=== PATIENT | female | born 1990 ===

== ENCOUNTER 2017-12-11 19:35 | Emergency (ER) | payer OTHER ==
[2017-12-11 20:30] VITALS: BP 114/77
--- NOTE | 2017-12-11 20:40 | UC ---
Dental HPI - HPI Summary HPI Summary: 27 y/o female presents to the urgent care c/o toothache in her Rt lower jaw since yesterday. Pt reports she has a cavity there and now when she eats it hurts a lot. Pain is 8/10 radiating up w/ mild swelling. Pt took ibuprofen 400mg PO this morning to alleviate symptoms. Pt denies fever, trismus, ASTUDILLO, SOB, chest pain, abdominal pain, N/V/D. - History of Current Complaint Chief Complaint: UCDentalProblem Stated Complaint: TOOTH PAIN Time Seen by Provider: 12/11/17 20:39 Hx Obtained From: Patient Hx Last Menstrual Period: 11/07/17 ?: No Onset/Duration: Gradual Onset, Lasting Days - 1 day, Still Present, Worse Since - today Severity: Moderate Pain Intensity: 8 Pain Scale Used: 0-10 Numeric Aggravating Factor(s): Chewing Alleviating Factor(s): OTC Meds Related History: Swelling - Allergies/Home Medications Allergies/Adverse Reactions: Allergies Allergy/AdvReac Type Severity Reaction Status Date / Time No Known Allergies Allergy Verified 12/11/17 20:30 PMH/Surg Hx/FS Hx/Imm Hx Previously Healthy: Yes - Pt denies PMHX - Surgical History Surgical History: None - Family History Known Family History: Positive: None - Pt denies FMHX - Social History Occupation: Employed Full-time Lives: With Family Alcohol Use: None Substance Use Type: None Smoking Status (MU): Never Smoked Tobacco Review of Systems Constitutional: Negative Skin: Negative Eyes: Negative ENT: Dental Pain - RT side lower jaw Cardiovascular: Negative Gastrointestinal: Negative Genitourinary: Negative Motor: Negative Neurovascular: Negative Musculoskeletal: Negative Neurological: Negative Psychological: Negative Is Patient Immunocompromised?: No All Other Systems Reviewed And Are Negative: Yes Physical Exam - Summary Physical Exam Summary: Vital Signs Reviewed: Yes General: well developed. well nourished female sitting in the examining table w/ o any apparent distress Eyes: Positive: Conjunctiva Clear - PERRLA, EOMI, fundi grossly normal ENT: Positive: Normal ENT inspection, Hearing grossly normal, Pharyngeal erythema, TMs normal, Uvula midline. Negative: Tonsillar swelling, Tonsillar exudate, Trismus Dental: Positive: Percussion Tenderness @ - molar 31, Gross Decay/Caries @ - molar 31, Abscess @ - molar 31,anterior Cervical Lymphadenopathy - B/L anterior , Neck: Positive: Supple, Nontender Respiratory: Positive: Chest non-tender, Lungs clear, Normal breath sounds, No respiratory distress Cardiovascular: Positive: RRR, No Murmur, Pulses Normal, Brisk Capillary Refill Abdomen Description: Positive: Nontender, No Organomegaly, Soft. Negative: CVA Tenderness (R), CVA Tenderness (L) Bowel Sounds: Positive: Present Musculoskeletal: Positive: Strength Intact, ROM Intact, No Edema Neurological Exam: Normal Psychological Exam: Normal Skin Exam: Normal Triage Information Reviewed: Yes Vital Signs: Initial Vital Signs Temp 98.7 F 12/11/17 20:24 Pulse 63 12/11/17 20:24 Resp 16 12/11/17 20:24 BP 114/77 12/11/17 20:24 Pulse Ox 100 12/11/17 20:24 Dental Complaint Course/Dx - Course Course Of Treatment: 27 y/o female presents to the urgent care c/o toothache in her Rt lower jaw since yesterday. Pt reports she has a cavity there and now when she eats it hurts a lot. Pain is 8/10 radiating up w/ mild swelling. Pt took ibuprofen 400mg PO this morning to alleviate symptoms. Pt denies fever, trismus, ASTUDILLO, SOB, chest pain, abdominal pain, N/V/D.Hx obtained. Pt w/ a small dental abscess around molar 31 w/ gross decay.Pt given viscous Lidocaine at the clinic to alleviate symptoms. Pt Rx Amoxicillin PO and Ibuprofen PO for pain. First dose given at the clinic since pharmacy closed. Pt strongly advised to f/ u with Dentist as soon as possible further evaluation and treatment. Pt understood and agreed with plan of care. Left the clinic ambulating. - Differential Dx/Diagnosis Differential Diagnosis/Dx: Dental Abscess, Dental Caries, Fractured Tooth, Odontogenic Pain, Peridontic Disease Provider Diagnoses: 1-Dental abscess at molar 31. 2-Toothache and molar decay at 30 Discharge - Sign-Out/Discharge Documenting (check all that apply): Discharge/Admit/Transfer - D/C home - Discharge Plan Condition: Stable Disposition: HOME Prescriptions: Amoxicillin PO (*) [Amoxicillin 875 MG (*)] 875 mg PO BID #19 tab Ibuprofen TAB* [Motrin TAB* 800 MG] 800 mg PO Q6H PRN #30 tab PRN Reason: dental pain Patient Education Materials: Dental Abscess (ED), Toothache (ED) Referrals: Niecy Ko MD [Primary Care Provider] - 2 Days Additional Instructions: 1-Please take full course of antibiotic to avoid resistance. 2- Take Ibuprofen PO as instructed after meals to alleviate pain and swelling. 3- F/u with your Dentist or Dental List provided as soon as possible for further treatment. 4- If symptoms do not improve or worsen please return to the urgent care or f/u with your PCP for further evaluation and treatment - Billing Disposition and Condition Condition: STABLE Disposition: Home
[2017-12-11] MEDS ORDERED: Lidocaine 2% VISCOUS* 15 ML UDC SWISH SPIT ONE (20:48)
[2017-12-11] MEDS ORDERED: Ibuprofen TAB* 400 MG PO ONE (20:49)
[2017-12-11] MEDS ORDERED: Amoxicillin PO (*) 500 MG CAP PO ONE (20:49)
== END 2017-12-11 21:20 | disposition home or self-care (01) ==
LOC: UCEAST 19:35
DX: K04.7 Periapical abscess without sinus (principal); K02.9 Dental caries, unspecified; K08.89 Other specified disorders of teeth and supporting structures
CPT/HCPCS: 99203; A9270-GY; G0463